=== PATIENT | male | born 2000 | race African-American/Black ===

== ENCOUNTER 2024-04-16 13:14 | Emergency (ER) | payer MEDICAID ==
[~2024-04-16] VITALS: Ht 177.8 cm; Wt 70.3 kg
[2024-04-16 13:26] VITALS: BP 124/88; TEMP 98.4; O2SAT 98
== END 2024-04-16 15:40 | disposition home or self-care (01) ==
LOC: ER 13:22
DX: B34.9 Viral infection, unspecified (principal); F12.90 Cannabis use, unspecified, uncomplicated; R05.8 Other specified cough; R09.89 Other specified symptoms and signs involving the circulatory and respiratory systems; Z20.822 Contact with and (suspected) exposure to COVID-19
CPT/HCPCS: 71045-TC